=== PATIENT | female | born 1940 | race Caucasian/White ===

== ENCOUNTER 2020-07-31 21:47 | Emergency (ER) | payer MEDICARE, SELFPAY ==
--- NOTE | ~2020-07-31 | XR_ITS ---
EXAMINATION: XR shoulder LT min 2V INDICATION: Left shoulder pain TECHNIQUE: Four views of the left shoulder are obtained. COMPARISON: None available FINDINGS: There is no fracture, dislocation, or subluxation. Mild glenohumeral and acromioclavicular joint osteoarthritis is noted. There is a calcified granuloma of the left midlung zone. A coronary ar kenya stent is noted. IMPRESSION: 1. No acute osseous abnormality. Reviewed, dictated and finalized at location A.
--- NOTE | ~2020-07-31 | XR_ITS ---
EXAMINATION: XR hip LT 2V w AP pelvis INDICATION: Left hip pain TECHNIQUE: AP view of the pelvis and three views of the left hip are obtained. COMPARISON: None available FINDINGS: Bone alignment is normal. There is no fracture. Pelvic phleboliths are noted. IMPRESSION: 1. No acute osseous abnormality. Reviewed, dictated and finalized at location A.
[2020-07-31 22:00] VITALS: BP 164/92; PULSE 71; RESP 16; TEMP 37.1; O2SAT 99
--- NOTE | 2020-07-31 22:11 | WC.ED.TRAUMA ---
HPI - Trauma General Chief Complaint: Extremity Injury, Upper Stated Complaint: fall/right shoulder injury Source: patient Mode of arrival: ambulatory Limitations: no limitations History of Present Illness HPI narrative: this is an 80-year-old female that presents to the emergency department after she fell and fell into a tree injuring her left shoulder and left hip while she was walking her dog. No loss of consciousness no nausea vomiting no headaches no blurry vision no rib pain no back pain. Patient has a history of CAD, hyperlipidemia, hypertension and hypothyroidism. Currently no fever or chills no shortness of breath no cough. MD complaint: fall Onset (ago): hour(s) Loss of Consciousness: no Location - Extremities: Left: shoulder ( pain with movement) and hip ( pain with movement and palpation) Severity scale (1-10): 6 Context: fall ( while walking her dog) Associated symptoms: denies other symptoms Related Data Home Medications Medication Instructions Recorded Confirmed atenolol 50 mg PO DAILY 07/31/20 07/31/20 isosorbide mononitrate 30 mg PO DAILY 07/31/20 07/31/20 levothyroxine 50 mcg PO DAILY 07/31/20 07/31/20 lisinopril 5 mg PO DAILY 07/31/20 07/31/20 nitroglycerin 0.4 mg SUBLINGUAL PRN 07/31/20 07/31/20 rosuvastatin 10 mg PO DAILY 07/31/20 07/31/20 Allergies Allergy/AdvReac Type Severity Reaction Status Date / Time MALARA DRUGS Allergy Unknown Uncoded 07/31/20 22:08 Review of Systems Review of Systems: All systems reviewed & are unremarkable except as noted in HPI and below PMFSH Past Medical History Medical History CAD (coronary artery disease) HLD (hyperlipidemia) HTN (hypertension) Exam Const: General: no acute distress HENMT: Head: normal to inspection Eyes: Conjunctivae: conjunctivae normal Pupils: Equal, round and reactive pupils present EOM: EOMs intact bilaterally Neck: Neck: normal visual inspection Chest: Chest palpation & inspection: normal inspection of the chest Resp: Effort & Inspection: normal respiratory effort Auscultation: clear to auscultation bilaterally Cardio: Rate: regular rate Rhythm: regular rhythm GI: GI Palp: Yes Soft to palpation Auscultation: normal bowel sounds : General: Yes no CVA tenderness Back/Spine/Pelvis: Back: no CVA tenderness Skin: General skin exam: normal color Rashes: no rashes Extrem: Other: left shoulder tenderness and reduced range of motion secondary to pain. Left hip pain with palpation Course Course Emergency Course: patient received IM Toradol and x-rays of her left shoulder and left hip and pelvis. Critical Care Time Critical Care Time Critical Care Time: No Discharge Plan Discharge Clinical Impression: Sprain of left shoulder Qualifiers: Encounter type: initial encounter Shoulder sprain type: unspecified sprain Qualified Code(s): S43.402A - Unspecified sprain of left shoulder joint, initial encounter Sprain of left hip Qualifiers: Encounter type: initial encounter Qualified Code(s): S73.102A - Unspecified sprain of left hip, initial encounter Patient Disposition: Home, Self-Care Condition: Stable Instructions: Antibiotic Form, Hip Sprain (ED), Shoulder Sprain (ED) Additional Instructions: Take Tylenol or Motrin for pain, follow-up with primary care physician if symptoms persist or worsen. Prescriptions: No Action isosorbide mononitrate 30 mg tablet extended release 24 hr 30 mg PO DAILY RF: 0 levothyroxine 50 mcg tablet 50 mcg PO DAILY RF: 0 nitroglycerin 0.4 mg tablet, sublingual 0.4 mg sublingual PRN RF: 0 lisinopril 5 mg tablet 5 mg PO DAILY RF: 0 atenolol 50 mg tablet 50 mg PO DAILY RF: 0 rosuvastatin 10 mg tablet 10 mg PO DAILY RF: 0 Follow-up/Referrals: UNKNOWN,DOCTOR [Primary Care Provider] - Time of Disposition: 23:02
[2020-07-31] MEDS: KETOROLAC (*BKC) 60 MG/2 ML VIAL IM (22:32)
[2020-07-31 23:09] VITALS: PULSE 70; RESP 16; O2SAT 100
== END 2020-07-31 23:13 | disposition home or self-care (01) ==
PROVIDERS: Emergency Provider Emergency Medicine
DX: S43.402A Unspecified sprain of left shoulder joint, initial encounter (principal); S73.102A Unspecified sprain of left hip, initial encounter; W19.XXXA Unspecified fall, initial encounter
CPT/HCPCS: 73030; 73502; 96372; 99282; 99284; J1885

== ENCOUNTER 2020-08-03 13:00 | Emergency (ER) | payer MEDICARE, SELFPAY ==
--- NOTE | ~2020-08-03 | XR_ITS ---
EXAMINATION: XR forearm LT 2V DATE: 08/03/2020 13:40 INDICATION: Left forearm injury. TECHNIQUE: 2 views of left forearm were obtained. COMPARISON: None. FINDINGS: Bone alignment is normal. No fracture. There is mild osteoarthritis of triscaphe joint and first carpometacarpal joint. There is no elbow joint effusion. There is an enthesophyte at lateral hu meral epicondyle. IMPRESSION: 1. No fracture. Reviewed, dictated and finalized at location A. IMPRESSION: 1. No fracture.
[2020-08-03 13:18] VITALS: BP 141/86; PULSE 74; RESP 14; TEMP 36.4; O2SAT 94
--- NOTE | 2020-08-03 13:43 | ED.UPPEXIN ---
HPI - Extremity Injury (Upper) General Chief Complaint: Extremity Injury, Upper Stated Complaint: left arm pain from fall Time Seen by Provider: 08/03/20 13:46 History of Present Illness HPI narrative: 80-year-old female patient is here with chief complaints of pain to the left elbow and forearm from a recent ground level fall. The patient states that she was walking the dog and tripped and fell on the left side 2-3 days ago. She was seen here in the ER and had an x-ray of the left hip done which was not broken. Patient since then has noticed that she has some pain in the left elbow and forearm and has also noticed some bruising. She is able to use the arm without any difficulty and denies any numbness or tingling to the forearm or the hand. Related Data Home Medications Medication Instructions Recorded Confirmed atenolol 50 mg PO DAILY 07/31/20 08/03/20 isosorbide mononitrate 30 mg PO DAILY 07/31/20 08/03/20 levothyroxine 50 mcg PO DAILY 07/31/20 08/03/20 lisinopril 5 mg PO DAILY 07/31/20 08/03/20 nitroglycerin 0.4 mg SUBLINGUAL PRN 07/31/20 08/03/20 rosuvastatin 10 mg PO DAILY 07/31/20 08/03/20 Allergies Allergy/AdvReac Type Severity Reaction Status Date / Time MALARA DRUGS Allergy Unknown Uncoded 07/31/20 22:08 Review of Systems Review of Systems: All systems reviewed & are unremarkable except as noted in HPI and below PMFSH Past Medical History Medical History CAD (coronary artery disease) HLD (hyperlipidemia) HTN (hypertension) Exam Narrative: Exam Narrative: Patient is alert and oriented to time place person. She has stable vital signs. She is not in any acute distress. She did ambulate to the ER and has no difficulty ambulating. No respiratory distress. Heart tones are regular. Breath sounds are clear bilaterally. Left elbow and proximal forearm show some bruising on the ulnar surface with a little swelling and no effusion. The range of motion in the elbow joint is full. There is local tenderness on palpation of the bruised area. Distal neurovascular status of the hand is intact. Course Course Emergency Course: Patient has an x-ray of the left forearm done. There is no fracture reported by the radiologist. The patient is aware of. The plan is to discharge the patient home with an arm sling for pain relief. Vital Signs Vital signs: Vital Signs Temperature 36.4 C 08/03/20 13:18 Pulse Rate 74 08/03/20 13:18 Respiratory Rate 14 08/03/20 13:18 Blood Pressure 141/86 H 08/03/20 13:18 Pulse Oximetry 94 08/03/20 13:18 Temperature 36.4 C 08/03/20 13:18 Pulse Rate 74 08/03/20 13:18 Respiratory Rate 14 08/03/20 13:18 Blood Pressure 141/86 H 08/03/20 13:18 Pulse Oximetry 94 08/03/20 13:18 Discharge Plan Discharge Clinical Impression: Contusion of forearm, left Patient Disposition: Home, Self-Care Condition: Stable Additional Instructions: Wear the sling for comfort as needed. Take Tylenol or ibuprofen as needed for pain. Follow-up with your primary care physician if the symptoms worsen. Prescriptions: No Action isosorbide mononitrate 30 mg tablet extended release 24 hr 30 mg PO DAILY RF: 0 levothyroxine 50 mcg tablet 50 mcg PO DAILY RF: 0 nitroglycerin 0.4 mg tablet, sublingual 0.4 mg sublingual PRN RF: 0 lisinopril 5 mg tablet 5 mg PO DAILY RF: 0 atenolol 50 mg tablet 50 mg PO DAILY RF: 0 rosuvastatin 10 mg tablet 10 mg PO DAILY RF: 0 Follow-up/Referrals: Tavo King MD [Primary Care Provider] - Time of Disposition: 13:58
[2020-08-03 14:20] VITALS: RESP 15; O2SAT 100
== END 2020-08-03 14:20 | disposition home or self-care (01) ==
PROVIDERS: Emergency Provider Emergency Medicine; PCP Internal Medicine
DX: S50.12XA Contusion of left forearm, initial encounter (principal); W01.0XXA Fall on same level from slipping, tripping and stumbling without subsequent striking against object, initial encounter; Y93.K1 Activity, walking an animal; I25.10 Atherosclerotic heart disease of native coronary artery without angina pectoris; I10 Essential (primary) hypertension; E78.5 Hyperlipidemia, unspecified
CPT/HCPCS: 73090; 99281; 99282; 99283; A4565

== ENCOUNTER 2020-11-10 17:50 | Emergency (ER) | payer MEDICARE, SELFPAY ==
--- NOTE | ~2020-11-10 | XR_ITS ---
EXAMINATION: XR ribs RT 2V INDICATION: Right-sided rib pain TECHNIQUE: 3 views of the right ribs were obtained. COMPARISON: 10/17/2016 FINDINGS: No displaced rib fracture is identified. The right lung is clear. Thoracolumbar levoscolios is is noted. IMPRESSION: 1. No displaced rib fracture is identified. Reviewed, dictated and finalized at location A. INE PACKAGER
--- NOTE | ~2020-11-10 | CT_ITS ---
EXAMINATION: CT cervical spine wo con DATE: 11/10/2020 19:08 INDICATION: Head injury TECHNIQUE: Computed tomography (CT) of the cervical spine was performed without intravenous contrast. The dose-length product (DLP) was 605.33 mGy-cm. Automated exposure control and iterative reconstruc tion technique were employed. COMPARISON: None FINDINGS: No fractures identified. There is 1 mm of anterolisthesis of C5 on C6. There are 2 mm of an terolisthesis of C7 on T1. Mild loss of intervertebral disc space height is present at C3-4 and C4-5. The vertebral body heights are maintained. The odontoid is intact. There is moderate to severe multi level facet and uncovertebral joint osteoarthritis. IMPRESSION: 1. Moderate cervical spondylosis without acute findings. Reviewed, dictated and finalized at location A. OR ANALYST
--- NOTE | ~2020-11-10 | XR_ITS ---
EXAMINATION: XR shoulder RT min 2V INDICATION: Right shoulder pain TECHNIQUE: Four views of the right shoulder are submitted. COMPARISON: None FINDINGS: Normal alignment. No fracture. There is mild osteoarthritis of the acromioclavicular and gl enohumeral joints. Soft tissues are unremarkable. IMPRESSION: 1. No acute osseous abnormality. Reviewed, dictated and finalized at location A. ODUCTION PRODUCTION MANAGER
--- NOTE | ~2020-11-10 | CT_ITS ---
EXAMINATION: CT brain wo con INDICATION: Head injury COMPARISON: None TECHNIQUE: Standard unenhanced head CT. The dose-length product (DLP) was 605.33 mGy-cm. The mA was a djusted according to patient size. Iterative reconstruction technique was employed. FINDINGS: There is a right frontal scalp hematoma. There is no acute intraparenchymal hemorrhage. No evidence of mass lesion. No evidence of acute infarction. There is mild periventricular and subcortic al hypodensity probably related to small vessel ischemic disease. There is mild prominence of the sul ci and ventricles related to cerebral atrophy. Intracranial calcified cerebral atherosclerosis is not ed. There are no extra-axial collections. There is no mass effect or midline shift. The orbits and so ft tissues are unremarkable. The visualized sinuses and mastoid air cells are well aerated. IMPRESSION: 1. Right frontal scalp hematoma without acute intracranial abnormality. 2. Age related findings. Reviewed, dictated and finalized at location A. TAIL LOUNGE MANAGER
[2020-11-10 18:29] VITALS: BP 135/75; PULSE 79; RESP 20; TEMP 36.7; O2SAT 97
[2020-11-10 18:30] VITALS: BP 113/66; PULSE 78; RESP 20; O2SAT 96
[2020-11-10 20:00] VITALS: BP 111/66; PULSE 83; RESP 20; O2SAT 96
--- NOTE | 2020-11-10 20:06 | ED.FALL ---
HPI - Fall General Chief Complaint: Fall Stated Complaint: shoulder and head injury Source: patient and family Mode of arrival: ambulatory Limitations: no limitations History of Present Illness HPI Narrative: this is an 80-year-old female that presents after she took a fall after she tripped on her brother stools and fell down approximately 5 steps, she did not lose consciousness there is no headache there is no blurry vision no nausea or vomiting no neck pain or stiffness. Patient is complaining of right shoulder pain and right rib pain. The patient has decreased range of motion in her right shoulder secondary to pain, other is a contusion and hematoma to the right frontal scalp area. Patient has no numbness or tingling no radiation going down her right arm. complaint: fall Onset (ago): hour(s) Fall from: standing Fall witnessed: yes, by family Place fall occurred: home Loss of consciousness: none Prolonged down time: no Symptoms prior to fall: none Related Data Home Medications Medication Instructions Recorded Confirmed atenolol 50 mg PO DAILY 07/31/20 11/10/20 isosorbide mononitrate 30 mg PO DAILY 07/31/20 11/10/20 levothyroxine 50 mcg PO DAILY 07/31/20 11/10/20 lisinopril 5 mg PO DAILY 07/31/20 11/10/20 nitroglycerin 0.4 mg SUBLINGUAL PRN 07/31/20 11/10/20 rosuvastatin 10 mg PO DAILY 07/31/20 11/10/20 tramadol 50 mg PO BID 11/10/20 11/10/20 Allergies Allergy/AdvReac Type Severity Reaction Status Date / Time MALARA DRUGS Allergy Unknown Uncoded 07/31/20 22:08 Review of Systems Review of Systems: All systems reviewed & are unremarkable except as noted in HPI and below PMFSH Past Medical History Medical History (Updated 11/10/20 @ 20:11 by Larry Cole MD) CAD (coronary artery disease) HLD (hyperlipidemia) HTN (hypertension) Social History Social History Gender identity (if verbalized by the patient): Female Exam Const: General: no acute distress and alert Orientation/consciousness: patient oriented x3 HENMT: Head: normal to inspection Other: Hematoma to the right frontal scalp area and around her right eye Eyes: Pupils: Equal, round and reactive pupils present Neck: Neck: normal visual inspection, no lymphadenopathy and no meningeal signs Chest: Chest palpation & inspection: normal inspection of the chest Resp: Effort & Inspection: normal respiratory effort Auscultation: clear to auscultation bilaterally Cardio: Rate: regular rate Rhythm: regular rhythm GI: GI Palp: Yes Soft to palpation : General: Yes no CVA tenderness Urinary Catheter: Urinary Catheter: patent and draining Skin: General skin exam: normal color Rashes: no rashes Neuro: General: patient oriented x3, moves all extremities, no meningeal signs and no focal motor deficits Psych: Mental Status: mental status grossly normal Course Course Emergency Course: patient given Toradol, and reviewed x-rays of shoulder and ribs and CT scans and advised that there were no acute fractures and follow with her primary care physician. Vital Signs Vital signs: Vital Signs Temperature 36.7 C 11/10/20 18:29 Pulse Rate 79 11/10/20 18:29 Respiratory Rate 20 11/10/20 18:29 Blood Pressure 135/75 11/10/20 18:29 Pulse Oximetry 97 11/10/20 18:29 Temperature 36.7 C 11/10/20 18:29 Pulse Rate 79 11/10/20 18:29 Respiratory Rate 20 11/10/20 18:29 Blood Pressure 135/75 11/10/20 18:29 Pulse Oximetry 97 11/10/20 18:29 Critical Care Time Critical Care Time Critical Care Time: No Discharge Plan Discharge Clinical Impression: Right shoulder strain Qualifiers: Encounter type: initial encounter Qualified Code(s): S46.911A - Strain of unspecified muscle, fascia and tendon at shoulder and upper arm level, right arm, initial encounter Contusion of face, scalp and neck Qualifiers: Encounter type: initial encounter Qualified Code(s):
[2020-11-10] MEDS: KETOROLAC (*BKC) 60 MG/2 ML VIAL IM (20:10)
[2020-11-10 21:00] VITALS: BP 130/94; PULSE 81; RESP 20; O2SAT 98
== END 2020-11-10 21:08 | disposition home or self-care (01) ==
PROVIDERS: Emergency Provider Emergency Medicine; PCP Internal Medicine
DX: S46.911A Strain of unspecified muscle, fascia and tendon at shoulder and upper arm level, right arm, initial encounter (principal); S00.83XA Contusion of other part of head, initial encounter; W10.9XXA Fall (on) (from) unspecified stairs and steps, initial encounter
CPT/HCPCS: 70450; 71100; 72125; 73030; 96372; 99283; 99284; J1885

== ENCOUNTER 2021-04-29 18:23 | Emergency (ER) | payer MEDICARE, SELFPAY ==
--- NOTE | ~2021-04-29 | XR_ITS ---
XR shoulder LT min 2V 04/29/2021 20:50 INDICATION: Left shoulder pain after fall PROCEDURE: 4 views left shoulder. COMPARISON: 07/31/2020 FINDINGS: Fracture, dislocation or subluxation is not identified. The soft tissues appear within norm al limits. No foreign bodies are identified. IMPRESSION: 1: NO ACUTE BONE OR JOINT ABNORMALITY IDENTIFIED. Reviewed, dictated and finalized at location A.
--- NOTE | ~2021-04-29 | CT_ITS ---
EXAMINATION: CTA chest PE protocol DATE: 04/29/2021 22:33 INDICATION: Syncope. TECHNIQUE: Computed tomography angiography (CTA) of the chest was performed with 100 mL Omnipaque-350 intravenous contrast timed to evaluate the pulmonary arteries. Coronal maximum intensity projection 3D-reconstructions were created by the technologist. Automated exposure control and iterative reconst ruction technique were employed. The dose-length product was 137.25 mGy-cm. COMPARISON: Chest single view 04/29/2021 FINDINGS: The lungs demonstrate mild atelectasis. There are two 6 mm nodules in left lower lobe. Calc ified left lung nodules and calcified left hilar and mediastinal lymph nodes are consistent with old granulomatous disease. No pleural effusion. The heart size is normal. There are coronary artery calci fications. No pericardial effusion. There is no pulmonary embolus. There is a 2.3 cm cyst in the live r. There is a 3.4 cm cyst in left kidney. There is thoracic dextrocurvature and mild spondylosis. IMPRESSION: 1. No pulmonary embolus. Sensitivity is mildly decreased by motion artifact. 2. Two 6 mm pulmonary nodules, probably benign. Consider noncontrast low-dose chest CT in 6-12 months . Reviewed, dictated and finalized at location A. IMPRESSION: 1. No pulmonary embolus. Sensitivity is mildly decreased by motion artifact. 2. Two 6 mm pulmonary nodules, probably benign. Consider noncontrast low-dose c hest CT in 6-12 months.
--- NOTE | ~2021-04-29 | XR_ITS ---
EXAMINATION: XR chest 1V portable 04/29/2021 20:50 INDICATION: Syncope PROCEDURE: AP portable chest COMPARISON: 10/17/2016 FINDINGS: The lungs are clear. The cardiomediastinal silhouette is within normal limits. There are no pleural effusions. There is no pneumothorax suspected. Calcified granulomas left lung. IMPRESSION: 1: NO ACUTE CARDIOPULMONARY DISEASE. Reviewed, dictated and finalized at location A.
--- NOTE | ~2021-04-29 | CT_ITS ---
EXAMINATION: CT cervical spine wo con DATE: 04/29/2021 20:13 INDICATION: Neck pain after fall TECHNIQUE: Computed tomography (CT) of the cervical spine was performed without intravenous contrast. The dose-length product was 125 mGy-cm. Automated exposure control and iterative reconstruction tech nique were employed. COMPARISON: CT dated 11/10/2020 FINDINGS: Accentuated cervical lordosis. There is degenerative anterolisthesis at C2-3, retrolisthesi s at C3-4, anterolisthesis at C5-6 and anterolisthesis at C7-T1. There is disc narrowing at C3-4 and C4-5 with dorsal osteophytes. Odontoid process is within normal limits. There is mild-moderate multil evel uncinate and facet hypertrophy. There are emphysematous changes in the lung apices. No paraspina l soft tissue abnormalities. There is carotid atherosclerosis. Mucous retention cyst left maxillary s inus. No acute fracture or traumatic malalignment. IMPRESSION: 1. No acute fracture. 2: Moderate cervical spondylosis. Reviewed, dictated and finalized at location A.
--- NOTE | ~2021-04-29 | CT_ITS ---
EXAMINATION: CT brain wo con DATE: 04/29/2021 20:13 INDICATION: Status post fall. Trauma. Headache. TECHNIQUE: Computed tomography (CT) of the head was performed without intravenous contrast. The dose- length product was 681.00 mGy-cm. Automated exposure control and iterative reconstruction technique were employed. COMPARISON: CT dated 11/10/2020 FINDINGS: Generalized atrophy. There are scattered mild periventricular and subcortical white matter changes, most likely related to small vessel ischemic disease (microangiopathy). No ventriculomegaly or midline shift. Basilar cisterns are patent. No acute intracranial hemorrhage, infarction, mass or mass effect. There is a mucous retention cyst left maxillary sinus. Mastoids are pneumatized. No depr essed skull fractures. IMPRESSION: 1. No acute intracranial abnormality. 2: Chronic age-related findings. Reviewed, dictated and finalized at location A.
[2021-04-29 18:25] VITALS: BP 160/91; PULSE 91; RESP 16; TEMP 36.5; O2SAT 98
--- NOTE | 2021-04-29 19:37 | PC.NURSE ---
1919-- resumed care from CATARINO Alex. report received. pt resting per cot. no complaints at this time. ready to go home i dont want to be here all night . explained dr pascal with critical pt, pt voiced understanding. brother at bedside. call llanos in reach.
--- NOTE | 2021-04-29 19:41 | ECG_ITS ---
Measurements Intervals [place] Rate: 93 P: 63 NJ: 173 QRS: 38 QRSD: 80 T: 67 QT: 326 QTc: 406 Interpretive Statements SINUS RHYTHM ATRIAL COUPLET LOW QRS VOLTAGE IN LIMB LEADS BORDERLINE R WAVE PROGRESSION, ANTERIOR LEADS BASELINE ARTIFACT- I, II, III, AVR, AVL, AVF BORDERLINE ECG Electronically Signed On 04-30-2021 5:55:52 CDT by Sami Blair D.O.
--- NOTE | 2021-04-29 19:54 | ED.FALL ---
HPI - Fall General Chief Complaint: Fall Stated Complaint: unknown Time Seen by Provider: 04/29/21 18:40 Source: patient and family Mode of arrival: EMS History of Present Illness HPI Narrative: Patient is brought in by EMS. She was on her front porch and fell off, after having a syncopal episode. She was found with her head down after having fallen down a few steps. She states she simply fell, and did not pass out. She remembers this she says. Brother says she was initially not conscious when he arrived at the house and found her on the steps. The time unconscious on the steps is not clear. It is felt she either fell secondary to simple loss of balance or as a complication of her intoxication. This episode is felt to have been severe, and could represent severe pathology and unconsciousness. Or it could just represent her being passed out due to alcohol intoxication after a fall. The significance is unclear. Duration of this episode, thought to be from unconsciousness is unknown. Context: fall and nonresponsive episode after alcohol ingestion. No other associated signs / symptoms. Onset (ago): minute(s) Fall from: standing Fall witnessed: no Place fall occurred: home Loss of consciousness: unsure Length of LOC: minutes(s) Prolonged down time: unclear (it is selt she was unconcious for at least a few minutes) Symptoms prior to fall: lightheadedness Context: other (syncope) Location of injury: head and face (nose bleeding) Location of injury - extremities: Right: shoulder Related Data Home Medications Medication Instructions Recorded Confirmed atenolol 50 mg PO DAILY 07/31/20 04/29/21 isosorbide mononitrate 30 mg PO DAILY 07/31/20 04/29/21 levothyroxine 50 mcg PO DAILY 07/31/20 04/29/21 lisinopril 5 mg PO DAILY 07/31/20 04/29/21 nitroglycerin 0.4 mg SUBLINGUAL PRN 07/31/20 04/29/21 rosuvastatin 10 mg PO DAILY 07/31/20 04/29/21 estradiol 1 mg PO DAILY 04/29/21 04/29/21 Allergies Allergy/AdvReac Type Severity Reaction Status Date / Time MALARA DRUGS Allergy Unknown Uncoded 07/31/20 22:08 Review of Systems Constitutional: Constitutional: Reports no additional constitutional complaints Eyes: Eyes: Reports no additional eye complaints ENT: Reports system reviewed and no additional complaints, except as documented Cardiovascular: Cardiovascular: Reports no additional cardiovascular complaints Respiratory: Respiratory: Reports no additional respiratory complaints Gastrointestinal: Gastrointestinal: Reports no additional gastrointestinal complaints Genitourinary: Genitourinary: Reports no additional female genitourinary complaints Musculoskeletal: Musculoskeletal: Reports no additional musculoskeletal complaints Integumentary/Breasts: Skin/Breast: Reports system reviewed and no additional complaints, except as docu Neurologic: Reports system reviewed and no additional complaints, except as documented Psychiatric: Psychiatric: Reports no additional psychiatric complaints Endocrine: Endocrine: Reports no additional endocrine complaints Hematologic/Lymphatic: Hematologic/Lymphatic: Reports no additional hematologic/lymphatic complaints Allergic/Immunologic: Allergic/Immunologic: Reports no additional allergic/immunologic complaints [facility] Past Medical History Medical History (Updated 04/30/21 @ 04:28 by Aly Begum MD) CAD (coronary artery disease) HLD (hyperlipidemia) HTN (hypertension) Family History Family History (Updated 04/29/21 @ 20:04 by Aly Bgeum MD) Father CAD (coronary artery disease) Mother CAD (coronary artery disease) Social History Social History (Updated 04/29/21 @ 21:09 by Aly Begum MD) Smoking status: Never smoker Alcohol intake: current Alcohol use details: usually minimal, sometimes drinks excess alcohol Other substance usage details: usually minimal alcohol, sometimes exceess alcohol Living arrangements: with family Gender identity (
[2021-04-29 19:55] LABS: Basophils Absolute Auto 0.06 K/mm3 (0.00-0.10); Basophils Percent Auto 1.3 % (0.0-1.0); Eosinophils Absolute Auto 0.12 K/mm3 (0.02-0.50); Eosinophils Percent Auto 2.6 % (1.0-6.0); Hematocrit 37.7 % (35.0-42.0); Hemoglobin 12.8 g/dL (11.7-13.8); Immature Granulocyte Absolute 0.02 K/mm3 (0.00-0.00); Immature Granulocyte Percent A 0.4 % (0.0-0.0); Lymphocytes Absolute Auto 1.89 K/mm3 (1.10-4.50); Lymphocytes Percent Auto 40.9 % (18.0-42.0); Mean Corpuscular Hemoglobin 31.4 pg (27.0-31.0); Mean Corpuscular Volume 92.4 fL (78.0-102.0); Mean Platelet Volume 9.6 fl (9.2-11.8); Monocytes Absolute Auto 0.43 K/mm3 (0.10-0.90); Monocytes Percent Auto 9.3 % (2.0-11.0); Neutrophils Absolute Auto 2.1 K/mm3 (1.7-7.2); Neutrophils Percent Auto 45.5 % (50.0-70.0); Platelet Count Result 253 K/mm3 (150-420); Red Blood Count 4.08 M/mm3 (4.20-5.40); Red Cell Distribution Width 12.4 % (11.6-14.4); White Blood Count 4.6 K/mm3 (4.8-10.8)
[2021-04-29 20:10] LABS: D Dimer 3.87 mg/L (0.19-0.50)
[2021-04-29 20:19] LABS: Alanine Aminotransferase 18 U/L (14-59); Albumin Level 3.8 g/dL (3.4-5.0); Alkaline Phosphatase 74 U/L (46-116); Anion Gap 13 mmol/L (8-16); Aspartate Amino Transferase 24 U/L (15-37); Bilirubin,Total 0.4 mg/dL (0.00-1.00); Blood Urea Nitrogen 12 mg/dL (7-18); Calcium 8.6 mg/dL (8.5-10.1); Carbon Dioxide 26 mmol/L (21-32); Chloride 101 mmol/L (98-108); Estimated Glomerular Filt Rate 48; Glucose 96 mg/dL (70-99); Magnesium 1.5 mg/dL (1.8-2.4); NT Pro B Type Natriuretic Pept 221 pg/mL (0-450); Osmolality Calculated 289 mOsm/kg (285-295); Potassium 3.8 mmol/L (3.5-5.1); Sodium 140 mmol/L (136-145); Total Protein 6.8 g/dL (6.4-8.2)
[2021-04-29 20:20] LABS: Troponin I < 4.0 ng/L (0.00-60.4)
--- NOTE | 2021-04-29 20:43 | PC.NURSE ---
c-collar removed per dr day. pt complaint of left shoulder discomfort . dr day notified.
[2021-04-29] MEDS: KETOROLAC 30 MG/ML VIAL (*BKC) IV PUSH (21:16)
[2021-04-29 21:31] LABS: Ethanol 202 mg/dL (0-6)
[2021-04-29 21:32] LABS: Creatine Kinase 112 U/L (26-192)
[2021-04-29] MEDS: FAMOTIDINE 20 MG TABLET 40 MG PO (21:35)
[2021-04-29] MEDS: DEXAMETHASONE SOD PHOS INJ 4 MG/ML VIAL 6 MG IV PUSH (21:35)
[2021-04-29] MEDS: diphenhydrAMINE HCl INJ 50 MG/ML VIAL 25 MG IV PUSH (21:36)
[2021-04-29 21:45] VITALS: TEMP 36.9
--- NOTE | 2021-04-29 22:19 | PC.NURSE ---
2210 pt drowsy after medication given, warm blanket applied and lights out for comfort. 2220 pt to xray per stretcher with bill for ct chest.
--- NOTE | 2021-04-29 22:43 | PC.NURSE ---
pt return to room with xray staff. resting per cot. awaiting results of ct scan. no respiratory distress noted. no complaints per patient. denies any reaction to contrast at this time.
[2021-04-29 22:47] VITALS: BP 140/82; PULSE 84; RESP 20; TEMP 36.9; O2SAT 94
--- NOTE | 2021-04-29 23:13 | PC.NURSE ---
pt sleeping, warm blankets applied. call llanos in reach. resp even, and unlabored.
[2021-04-30] VITALS: BP 140/86; PULSE 73; RESP 20; TEMP 36.9; O2SAT 95
== END 2021-04-30 00:02 | disposition left against medical advice (07) ==
PROVIDERS: Emergency Provider Emergency Medicine
DX: R55 Syncope and collapse (principal); I25.10 Atherosclerotic heart disease of native coronary artery without angina pectoris; E78.5 Hyperlipidemia, unspecified; I10 Essential (primary) hypertension; Z79.899 Other long term (current) drug therapy
CPT/HCPCS: 36415; 70450; 71045; 71275; 72125; 73030; 80053; 80307; 82550; 83735; 83880; 84443; 84484; 85025; 85380; 93005; 96374; 96375; 99283; 99284; A9270; J1100; J1200; J1885; Q9967

== ENCOUNTER 2021-09-22 16:20 | Outpatient (CLI) | payer MEDICARE, SELFPAY ==
--- NOTE | ~2021-09-22 | XR_ITS ---
EXAMINATION: XR hand LT min 3V INDICATION: Left hand pain, initial encounter TECHNIQUE: Three views of the left hand are obtained. COMPARISON: 08/03/2020 FINDINGS: There is an acute, traumatic, closed, oblique fracture in the midshaft of the fourth metaca rpal. Soft tissue swelling is seen near the fracture. No additional acute osseous abnormality is iden tified. 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 IMPRESSION: 1. Acute oblique mid shaft fracture of the fourth metacarpal. Reviewed, dictated and finalized at location A.
--- NOTE | ~2021-09-22 | XR_ITS ---
EXAMINATION: XR wrist LT min 3V DATE: 09/22/2021 17:06 INDICATION: Left wrist pain TECHNIQUE: Posteroanterior, ulnar deviation, oblique, and lateral views of the left wrist were obtain ed. COMPARISON: 08/03/2020 FINDINGS: There is an acute shaft fracture of the fourth metacarpal described on the hand radiographs . Linear heterotopic ossification near the first carpometacarpal joint has a chronic appearance. Ther e also appears to be a chronic avulsion of the ulnar styloid. No acute wrist fracture is identified. IMPRESSION: 1. No acute wrist fracture identified. 2. Fourth metacarpal shaft fracture. Reviewed, dictated and finalized at location A.
== END 2021-09-22 16:21 | disposition home or self-care (01) ==
LOC: CHSIMG 16:22
PROVIDERS: PCP Internal Medicine; Visit Provider Internal Medicine
DX: S69.92XA Unspecified injury of left wrist, hand and finger(s), initial encounter (principal)
CPT/HCPCS: 73110; 73130

== ENCOUNTER 2021-09-25 09:35 | Outpatient (CLI) | payer MEDICARE, SELFPAY ==
--- NOTE | ~2021-09-25 | XR_ITS ---
EXAMINATION: XR forearm LT 2V INDICATION: Left forearm pain TECHNIQUE: Two views of the left forearm are obtained. COMPARISON: None available FINDINGS: There is an old ulnar styloid avulsion. No acute fracture is identified. Bone alignment at the wrist and elbow is normal. There is mild soft tissue swelling of the forearm. IMPRESSION: 1. No acute osseous abnormality. Reviewed, dictated and finalized at location A.
== END 2021-09-25 09:36 | disposition home or self-care (01) ==
LOC: CHSIMG 09:37
PROVIDERS: PCP Internal Medicine; Visit Provider Internal Medicine
DX: M79.632 Pain in left forearm (principal)
CPT/HCPCS: 73090